=== PATIENT | male | born 1960 | race Two or more races ===

== ENCOUNTER 2023-08-13 06:24 | Day surgery (SDC) | payer OTHER, SELFPAY ==
[2023-08-13] VITALS (11 sets, daily range): BP systolic 138–171; BP diastolic 83–99; BMI 27.7
[2023-08-13] MEDS: TYLENOL 1000 MG PO (09:15)
[2023-08-13] MEDS: NEURONTIN 300 MG PO (09:15)
[2023-08-13] MEDS: HEPARIN 5000 UNITS SC (09:15)
[2023-08-13] MEDS: NORMOSOL-R 1000 IV (09:16)
--- NOTE | 2023-08-13 11:12 | SUR.PHASEI ---
Rec'd sleepy on stretcher with HOB elevated 20 d, mario well oriented x 3 by RN positioned for comfort, trach midline, no crepitus flet in neck upper chest, able to pronounce A and E, swallowing freely
--- NOTE | 2023-08-13 11:32 | SUR.PHASEI ---
Arouses easily, able to clearly pronounce A and E , swallowing freely, trach midline, no crepitus felt in neck or upper chest, mario xray well, Dr Pinzon in, positioned for comfort, denies c/o
--- NOTE | 2023-08-13 11:51 | SUR.PHASEI ---
alert, awake, vss, mario ice chips well, SDS paged, assessment unchanged, speech cl, voice quality strong
--- NOTE | 2023-08-13 14:52 | OR.RPT ---
Operative Report
Operative Report
PREOPERATIVE DIAGNOSIS: �Mediastinal lymphadenopathy - R590
POSTOPERATIVE DIAGNOSIS: Same
SURGEON:Paulo Pinzon M.D.
OPERATION: �Mediastinoscopy and biopsy of the left paratracheal lymph node - 21154
ANESTHESIA:GET
ESTIMATED BLOOD LOSS: 2 cc
DRAINS:None
SPECIMEN: �Left paratracheal lymph node
FINDINGS: Left paratracheal lymphadenopathy
COMPLICATIONS:�None
PROCEDURE:The patient was taken to the operating room and placed in the usual supine position. After adequate general endotracheal anesthesia was established, the patient�s neck was extended, prepped, and draped in the typical sterile fashion. A 3
cm transcervical incision was made one fingerbreadth above the sternal notch. The skin incision was made with the #15 blade, which was taken through the skin into the subcutaneous tissue. The underlying platysma muscle was divided. The strap muscles
were identified and at the midline. The pretracheal fascia was divided, and blunt dissection above the trachea was done with fingers towards the payton. The mediastinoscope was placed in the space, and the dissection was continued with a
blunt suction tip. There was significant scarring. The left paratracheal lymph node was identified and biopsied by pulling the pieces of the lymph node with a small grasper. The specimen was sent to the pathology department. After obtaining adequate
hemostasis, the strap muscle was approximated with #3-0 Vicryl in a running fashion, and platysma muscles were reapproximated with #3-0 Vicryl in an interrupted fashion, and the skin was approximated with #4-0 Monocryl in a running subcuticular
fashion. Steri-strips and sterile dressings were placed. The patient tolerated the procedure well. The final instrument, needle, and sponge counts were correct.
== END 2023-08-13 12:55 | disposition home or self-care (01) ==
LOC: SDS 06:24
PROVIDERS: ATTENDING PHYSICIAN Surgery
DX: R59.0 Localized enlarged lymph nodes (principal)
CPT/HCPCS: 39401; 88307; 88312; 71045; 86850; 86900; 86901; 88341; 88342